=== PATIENT | male | born 1985 | race African-American/Black ===

== ENCOUNTER 2018-12-06 19:53 | Emergency (ER) | payer MEDICAID ==
--- NOTE | 2018-12-06 20:32 | EDM.PDOC ---
ED HPI GENERAL MEDICAL PROBLEM - General Chief Complaint: Upper Extremity Injury/Pain Stated Complaint: SLIP AND FELL Time Seen by Provider: 12/06/18 20:20 Source of Information: Reports: Patient History Limitations: Reports: No Limitations - History of Present Illness INITIAL COMMENTS - FREE TEXT/NARRATIVE: 32 yo black male fell on the ice just before arrival with injury to the R elbow and to a lesser degree the posterior R shoulder. No bleeding. Did not hit his head. Onset: Today Onset Date: 12/06/18 Onset Time: 19:50 Duration: Minutes:, Constant Location: Reports: Upper Extremity, Right Quality: Reports: Ache Severity: Moderate Improves with: Reports: Rest Worsens with: Reports: Movement Context: Reports: Trauma Associated Symptoms: Reports: No Other Symptoms Treatments [employer]: Reports: Other (see below) (none) Right Elbow Pain Score (Numeric/FACES): 9 - Related Data Allergies Allergy/AdvReac Type Severity Reaction Status Date / Time No Known Allergies Allergy Verified 12/07/13 19:11 Home Meds: Home Meds NK [No Known Home Meds] 12/07/13 [History] Past Medical History - Past Health History Medical/Surgical History: Denies Medical/Surgical History Social & Family History - Tobacco Use Smoking Status *Q: Never Smoker - Caffeine Use Caffeine Use: Reports: Soda - Recreational Drug Use Recreational Drug Use: No Review of Systems - Review of Systems Review Of Systems: See Below Constitutional: Reports: No Symptoms Musculoskeletal: Reports: Joint Pain (R elbow, and to a lesser extent the R shoulder) Skin: Reports: No Symptoms Neurological: Reports: No Symptoms ED EXAM, GENERAL - Physical Exam Exam: See Below Exam Limited By: No Limitations General Appearance: Alert, WD/WN, No Apparent Distress Peripheral Pulses: 3+: Radial (R) Back Exam: Normal Inspection, Other (tender over the R trapezius muscle.) Extremities: Normal Inspection, No Pedal Edema, Arm Pain (R elbow posterior pain ), Limited Range of Motion (R elbow). No: Normal Range of Motion, Non-Tender, Pedal Edema Neurological: Alert, Oriented, CN II-XII Intact, Normal Cognition Psychiatric: Normal Affect, Normal Mood Skin Exam: Warm, Dry, Intact, Normal Color, No Rash Course - Vital Signs Text/Narrative:: Sling applied to R arm. Last Recorded V/S: Last Vital Signs Temp 35.2 C L 12/06/18 20:13 Pulse 77 12/06/18 20:13 Resp 13 12/06/18 20:13 BP 181/11 H 12/06/18 20:13 Pulse Ox 98 12/06/18 20:13 - Orders/Labs/Meds Orders: Active Orders 24 hr Category Date Time Status Elbow Min 3V Rt [CR] Stat Exams 12/06/18 20:28 Ordered - Radiology Interpretation Free Text/Narrative:: R elbow X-ray-neg Departure - Departure Time of Disposition: 20:40 Disposition: Home, Self-Care 01 Condition: Good Clinical Impression: Contusion of elbow, right Qualifiers: Encounter type: initial encounter Qualified Code(s): S50.01XA - Contusion of right elbow, initial encounter - Discharge Information *PRESCRIPTION DRUG MONITORING PROGRAM REVIEWED*: No *COPY OF PRESCRIPTION DRUG MONITORING REPORT IN PATIENT FADIA: No Instructions: Contusion, [id number] Referrals: PCP,None [Primary Care Provider] - Forms: ED Department Discharge Additional Instructions: Take ibuprofen and/or acetaminophen per package instructions as needed for pain relief. Wear your sling as needed. F/U with your doctor as needed. - My Orders Last 24 Hours: My Active Orders 12/06/18 20:28 Elbow Min 3V Rt [CR] Stat - Assessment/Plan Last 24 Hours: My Active Orders 12/06/18 20:28 Elbow Min 3V Rt [CR] Stat
--- NOTE | 2018-12-06 21:04 | CRLCR ---
Indication: Injury and pain Technique: Right elbow 3 views Comparison: None Findings: Bones: Alignment is normal. No fractures or bone lesions. Joint spaces: Unremarkable. No sign of joint effusion. Soft tissues: Unremarkable. Impression: No sign of acute injury. Dictated by Pb Pena MD @ 12/06/2018 9:01:44 PM Dictated by: Pb Pena MD @ 12/06/2018 21:01:48 (Electronically Signed)
== END 2018-12-06 21:07 | disposition home or self-care (01) ==
LOC: JP.ED 19:53
DX: S50.01XA Contusion of right elbow, initial encounter (principal); W00.0XXA Fall on same level due to ice and snow, initial encounter
CPT/HCPCS: 73080-RT; 99283-25

== ENCOUNTER 2021-09-02 01:56 | Emergency (ER) | payer MEDICAID ==
[2021-09-02 02:52] LABS: CORONAVIRUS COVID-19 NAA POSITIVE (NEGATIVE)
--- NOTE | 2021-09-02 06:43 | EDM.PDOC ---
ED HPI GENERAL MEDICAL PROBLEM - General Chief Complaint: Fever Stated Complaint: POSSIBLE COVID Time Seen by Provider: 09/02/21 02:20 Source of Information: Reports: Patient History Limitations: Reports: No Limitations - History of Present Illness INITIAL COMMENTS - FREE TEXT/NARRATIVE: pt was concerned that he may have covid with the symptoms that he had. Once he got back in the room he decided he wanted tested but absolutely did not want to be seen - Related Data Allergies Allergy/AdvReac Type Severity Reaction Status Date / Time No Known Allergies Allergy Verified 09/02/21 02:51 Home Meds: Home Meds NK [No Known Home Meds] 12/07/13 [History] Past Medical History - Past Health History Medical/Surgical History: Denies Medical/Surgical History - Infectious Disease History Infectious Disease History: Reports: Chicken Pox Social & Family History - Tobacco Use Tobacco Use Status *Q: Former Tobacco User Used Tobacco, but Quit: Yes Month/Year Tobacco Last Used: 08/29/2021 - Caffeine Use Caffeine Use: Reports: None - Recreational Drug Use Recreational Drug Use: No ED ROS ENT - Review of Systems Review Of Systems: See Below Reason Not Obtained: pt deced that he did not want to be seen ED EXAM, ENT - Physical Exam Exam: See Below Text/Narrative:: pt arrived and wanted to be tested for covid 19 but he absolutely did not want to be seen. Course - Vital Signs Last Recorded V/S: Last Vital Signs Temp 100.1 C H 09/02/21 02:18 Pulse 118 H 09/02/21 02:18 Resp 18 09/02/21 02:18 BP 193/105 H 09/02/21 02:18 Pulse Ox 97 09/02/21 02:18 - Orders/Labs/Meds Labs: Laboratory Tests 09/02/21 Range/Units 02:03 Influenza Type A RNA Negative (NEGATIVE) RSV RNA (INAAT) Negative (NEGATIVE) Influenza Type B RNA Negative (NEGATIVE) SARS-CoV-2 RNA (APRIL) Positive H (NEGATIVE) - Re-Assessments/Exams Free Text/Narrative Re-Assessment/Exam: 09/02/21 06:42 pt did end up having a positive test but was not seen. Departure - Departure Time of Disposition: 02:25 Disposition: Home, Self-Care 01 Clinical Impression: COVID-19 - Discharge Information Referrals: PCP,None [Primary Care Provider] - Forms: ED Department Discharge Sepsis Event Note (ED) - Evaluation Sepsis Screening Result: No Definite Risk
== END 2021-09-02 02:55 | disposition home or self-care (01) ==
LOC: JP.ED 01:56
DX: U07.1 COVID-19 (principal); Z87.891 Personal history of nicotine dependence
CPT/HCPCS: 0241U; 99283